=== PATIENT | male | born 1950 | race African-American/Black ===

== ENCOUNTER 2018-01-30 05:11 | Inpatient (IN) | payer MEDICARE, OTHER ==
[2018-01-30] VITALS (9 sets, daily range): BP systolic 119–191; BP diastolic 68–177
[~2018-01-30] VITALS: Ht 170.2 cm; Wt 93.2 kg
[2018-01-30] MEDS ORDERED: MORPHINE SULFATE 4 MG/ML CPJ (NOT FOR IM USE) IV STA (05:35)
[2018-01-30] MEDS ORDERED: ONDANSETRON HCL 4MG/2ML INJ IV STA (05:35)
[2018-01-30 06:06] LABS: HEMATOCRIT. 43.5 % (42.0-52.0); HEMOGLOBIN. 14.7 g/dL (14.0-18.0); LYMPHOCYTES % 20.5 % (20.0-50.0); MEAN CORPUSCULAR HEMOGLOBIN 31.6 pg (28.0-32.0); MEAN CORPUSCULAR VOLUME 93.8 fL (80.0-94.0); MEAN PLATELET VOLUME 10.5 fl (7.4-10.4); MONOCYTES % 7.5 % (2.0-8.0); PLATELET 169 x1000/uL (130-400); RED BLOOD CELL COUNT 4.64 mill/uL (4.7-6.1); RED CELL DISTRIBUTION WIDTH 13.2 % (11.6-14.6)
[2018-01-30 06:17] LABS: CHLORIDE 106 mEq/L (98-107)
[2018-01-30] MEDS ORDERED: NALOXONE HCL 1 MG/ML 2ML VIAL ONE (06:17)
[2018-01-30] MEDS ORDERED: SODIUM CHLORIDE 0.9% 1000ML BAG (SEPSIS BOLUS) IV ONE (06:45)
[2018-01-30] MEDS ORDERED: VANCOMYCIN 1 G PREMIX 200 ML IV ONE (06:45)
[2018-01-30] MEDS ORDERED: PIPERACILLIN/TAZ 3.375G PREMIX 50 ML IV ONE (06:45)
[2018-01-30] MEDS ORDERED: GADOBENATE DIMEGLUMINE 529 MG/ML 10ML IV ONE (08:43)
[2018-01-30] MEDS ORDERED: ASPIRIN 600MG SUPP PR ONE (09:30)
[2018-01-30] MEDS ORDERED: ASPIRIN 325MG TABLET PO ONE (09:45)
[2018-01-30 11:52] LABS: CLARITY URINE CLEAR (CLEAR); COLOR URINE YELLOW (YELLOW); KETONES URINE NEGATIVE (NEGATIVE); LEUKOCYTE ESTERASE URINE NEGATIVE (NEGATIVE); NITRITE URINE NEGATIVE (NEGATIVE); OCCULT BLOOD URINE 2+ (NEGATIVE); PROTEIN URINE NEGATIVE (NEGATIVE); SPECIFIC GRAVITY URINE 1.011 (1.005-1.030); UROBILINOGEN URINE 0.2 E.U./dL (0.2-1.0)
[2018-01-30] MEDS ORDERED: POTASSIUM CHLORIDE 20MEQ TABLET SR PO ONE (13:15)
[2018-01-30] MEDS ORDERED: ONDANSETRON HCL 4MG TABLET PO PRN (18:15)
[2018-01-30] MEDS ORDERED: ACETAMINOPHEN 325MG TABLET PO PRN (18:15)
[2018-01-30] MEDS: ATORVASTATIN CALCIUM 40MG TABLET PO SCH (20:31)
[2018-01-30] MEDS: AMLODIPINE 10MG TABLET PO SCH (20:33)
[2018-01-31] VITALS (13 sets, daily range): BP systolic 123–161; BP diastolic 71–96
[2018-01-31 07:24] LABS: HEMATOCRIT 39.3 % (42.0-52.0); HEMOGLOBIN 13.5 g/dL (14.0-18.0); MEAN CORPUSCULAR HEMOGLOBIN 32.6 pg (28.0-32.0); PLATELET 136 x1000/uL (130-400); RED BLOOD CELL COUNT 4.14 mill/uL (4.7-6.1); RED CELL DISTRIBUTION WIDTH 13.5 % (11.6-14.6)
[2018-01-31 08:04] LABS: CHLORIDE 110 mEq/L (98-107)
[2018-01-31 08:20] LABS: HDL CHOLESTEROL 35 mg/dL (40-59); LDL CHOLESTEROL 122 mg/dL (5-100)
[2018-01-31] MEDS: AMLODIPINE 10MG TABLET PO SCH (08:27)
[2018-01-31] MEDS ORDERED: ASPIRIN 325MG EC TABLET PO SCH (09:00)
[2018-01-31] MEDS ORDERED: AMLODIPINE 10MG TABLET PO SCH (09:00)
[2018-01-31] MEDS ORDERED: CLONIDINE 0.1MG TABLET PO PRN (10:00)
[2018-01-31] MEDS ORDERED: LOSARTAN POTASSIUM 25 MG TABLET PO SCH (10:45)
[2018-01-31] MEDS ORDERED: NICOTINE 21MG PATCH TD SCH (10:45)
[2018-01-31] MEDS: ENOXAPARIN 30MG/0.3ML SYR SUBCUT SCH ×2 (11:12→21:08)
[2018-01-31 15:41] LABS: *AMPHETAMINES SCREEN URINE NEGATIVE (NEGATIVE); *BARBITURATES SCREEN URINE NEGATIVE (NEGATIVE); *BENZODIAZEPINES SCREEN URINE NEGATIVE (NEGATIVE); *COCAINE SCREEN URINE NEGATIVE (NEGATIVE)
[2018-01-31 15:43] LABS: CANNABINOID URINE SCREEN NEGATIVE (NEGATIVE); METHADONE URINE SCREEN NEGATIVE (NEGATIVE); OPIATES URINE SCREEN NEGATIVE (NEGATIVE); PHENCYCLIDINE URINE SCREEN NEGATIVE (NEGATIVE)
[2018-01-31 20:00] LABS: ETHANOL BLOOD < 10 mg/dL
[2018-01-31 20:05] LABS: HDL CHOLESTEROL 37 mg/dL (40-59); LDL CHOLESTEROL 125 mg/dL (5-100); T4 FREE 0.72 ng/dL (0.76-1.46)
[2018-01-31] MEDS: ATORVASTATIN CALCIUM 40MG TABLET PO SCH (21:08)
[2018-02-03 10:09] LABS: ANTI-THROMBIN ACTIVITY 119 % (75-135); DRVVT LA 30.4 sec (0.0-47.0); LUPUS ANTICOAG INTERPRETATION Comment: (.); PROTEIN C FUNCTIONAL 117 % (73-180); PTT-LA 29.9 sec (0.0-51.9)
[2018-02-05 14:21] LABS: ANTI-CARDIOLIPIN AB IGA < 9 APL U/mL (0-11); ANTI-CARDIOLIPIN AB IGG < 9 GPL U/mL (0-14); ANTI-CARDIOLIPIN AB IGM 9 MPL U/mL (0-12)
== END 2018-01-31 21:30 | disposition short-term general hospital (02) | DRG 65 ==
LOC: ER 05:11 → 3WST 06:50 → EDBEDREQTM 06:54 → EDBEDREQ 06:54 → EDBEDREQSVC 06:54 → ENRESERV 14:13
PROVIDERS: ADMIT Internal Medicine; ATTEND Internal Medicine
DX: I63.431 Cerebral infarction due to embolism of right posterior cerebral artery (principal); G93.40 Encephalopathy, unspecified; E78.00 Pure hypercholesterolemia, unspecified; E66.9 Obesity, unspecified; E87.6 Hypokalemia; I10 Essential (primary) hypertension; F17.210 Nicotine dependence, cigarettes, uncomplicated; Z90.49 Acquired absence of other specified parts of digestive tract; Z68.32 Body mass index [BMI] 32.0-32.9, adult; Z71.6 Tobacco abuse counseling
CPT/HCPCS: 36415; 70544; 70547; 70553; 71045; 80061; 80305; 81400; 81403; 81407; 81479; 82607; 82746; 82962; 83036; 83605; 84439; 84443; 84481; 84484; 85027; 85300; 85303; 85306; 85613; 85732; 86147; 92610; 93005; 96365; 96375; 97162; 97166; 97530; 99291; A9577; G0482; J1650; J2270; J2310; J2405; J2543; J3370; J7030; A4315